=== PATIENT | female | born 1960 | race Two or more races ===

== ENCOUNTER 2025-03-28 19:12 | Emergency (ER) | payer OTHER ==
[~2025-03-28] VITALS: Ht 162.6 cm; Wt 69.9 kg
[2025-03-28] MEDS ORDERED: AMOX-430 PO (19:42)
[2025-03-28] MEDS ORDERED: IBUP-1490 PO (19:42)
[2025-03-28] MEDS ORDERED: LIDOCAINE 1% INJ 50 ML MDV IJ ONE (19:48)
[2025-03-28] MEDS: LIDOCAINE HCL/PF 1% 30 ML VIAL TP ONE (19:49)
[2025-03-28] MEDS ORDERED: AMOX/CLAVULANATE 875 MG TABLET ONE (20:01)
[2025-03-28] MEDS ORDERED: IBUPROFEN 600 MG TABLET ONE (20:01)
[2025-03-28] MEDS: IBUPROFEN 600 MG TABLET PO ONE (20:13)
[2025-03-28] MEDS: AMOX/CLAVULANATE 875 MG TABLET PO ONE (20:14)
[2025-03-28 20:16] VITALS: BP 120/78; O2SAT 99
== END 2025-03-28 20:16 | disposition home or self-care (01) ==
LOC: ER 19:13
DX: L03.011 Cellulitis of right finger (principal); E11.9 Type 2 diabetes mellitus without complications
CPT/HCPCS: 99283; 10060; J3490